=== PATIENT | female | born 1970 | race Caucasian/White ===

== ENCOUNTER 2018-10-29 06:12 | Day surgery (SDC) | payer OTHER ==
[2018-10-29] MEDS ORDERED: MIDAZOLAM 1 MG/ML 2 ML INJ (07:00)
[2018-10-29] MEDS ORDERED: SEVOFLURANE 15 MIN (07:00)
[2018-10-29] MEDS ORDERED: ONDANSETRON 4 MG INJ (07:00)
[2018-10-29] MEDS ORDERED: FENTAnyl 50 MCG/ML VIAL (07:00)
[2018-10-29] MEDS ORDERED: VASOPRESSIN 20 UNITS INJ (09:24)
[2018-10-29] MEDS ORDERED: HYDROmorphONE 1 MG/5 ML IV SYRINGE IV (10:30)
[2018-10-29] MEDS: HYDROmorphONE 1 MG/5 ML IV SYRINGE IV ×2 (10:36→10:43)
[2018-10-29] MEDS ORDERED: ACETAMINOPHEN 325 MG TAB PO (11:30)
== END 2018-10-29 13:40 | disposition home or self-care (01) ==
LOC: SDS 06:12
DX: N84.0 Polyp of corpus uteri (principal); D25.9 Leiomyoma of uterus, unspecified
CPT/HCPCS: 58558; 84703; 86850; 86900; 86901; 88305